=== PATIENT | female | born 1960 | race Caucasian/White ===

== ENCOUNTER 2018-10-17 13:10 | Outpatient (CLI) | payer OTHER ==
[2018-10-17 15:40] LABS: BASOPHILS # (AUTO) 0.1 X10'3 (0-0.2); BASOPHILS % (AUTO) 1.3 % (0-1); EOSINOPHILS # (AUTO) 0.1 X10'3 (0-0.9); EOSINOPHILS % (AUTO) 1.9 % (0-6); LYMPHOCYTES # (AUTO) 1.9 X10'3 (1.1-4.8); LYMPHOCYTES % (AUTO) 41.3 % (21-51); MEAN CORPUSCULAR HGB CONC 33.7 g/dL (33.0-36.5); MEAN PLATELET VOLUME 8.3 FL (7.4-10.4); MONOCYTES # (AUTO) 0.4 X10'3 (0-0.9); MONOCYTES % (AUTO) 7.8 % (2-12); NEUTROPHILS # (AUTO) 2.2 X10'3 (1.8-7.7); NEUTROPHILS % (AUTO) 47.7 % (42-75); PRE OP HEMATOCRIT 41.4 % (35.0-45.0); PRE OP PLATELET COUNT 220 X10'3 (140-440); RED BLOOD COUNT 4.82 X10'6 (4.20-5.60); RED CELL DISTRIBUTION WIDTH 12.7 % (11.5-14.5)
[2018-10-17 15:43] LABS: CLARITY,URINE CLEAR (Clear); COLOR,URINE YELLOW (Yellow); GLUCOSE, URINE NEGATIVE (Neg); KETONES,URINE NEGATIVE (Neg); LEUKOCYTE ESTERASE ,URINE NEGATIVE (Neg); NITRITES, URINE NEGATIVE (Neg); OCCULT BLOOD,URINE NEGATIVE (Neg); PH,URINE 7.5 (4.8-8.0); PROTEIN,URINE NEGATIVE (Neg); UA COLLECTION TYPE CLN CATCH MIDSTREAM; UROBILINOGEN,URINE 0.2 E.U/dL (0.2-1.0)
[2018-10-17 15:48] LABS: PRE OP PROTIME 10.2 SECONDS (9.0-12.0)
[2018-10-17 15:53] LABS: ALBUMIN 3.8 G/DL (3.4-5.0); ALBUMIN/GLOBULIN RATIO 1.1 (1.1-1.5); ALKALINE PHOSPHATASE 113 IU/L (46-116); BLOOD UREA NITROGEN 13 MG/DL (7-18); BUN/CREATININE RATIO 21.7 (6.6-38.0); CALCIUM 9.3 MG/DL (8.5-10.1); CHLORIDE 105 MMOL/L (99-107); PRE OP ALT 23 U/L (30-65); PRE OP ANION GAP 6 (8-16); PRE OP AST 8 U/L (10-37); PRE OP BILIRUB, TOTAL 0.3 MG/DL (0.0-1.0); PRE OP GLUCOSE 85 MG/DL (70-104); PRE OP POTASSIUM 3.7 MMOL/L (3.4-5.1); PRE OP SODIUM 143 MMOL/L (135-145); TOTAL CARBON DIOXIDE 32.5 MMOL/L (24-32); TOTAL PROTEIN 7.3 G/DL (6.4-8.2); eGFR > 90 ML/MIN
[2018-10-17] MEDS ORDERED: POLY17PO10 PO (16:07)
--- NOTE | 2018-10-22 09:53 | NUR ---
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 RN GAVE HER DONATO PHONE NUMBER TO CONTACT DR ARNDT'S TACOS AND UPDATE WITH CURRENT STATUS. Addendum: 10/23/18 at 0617 by Latha Prajapati RN RN ALSO PHONED 10/22 @[address] ARNDT'S TACOS CASH. NO RETURN CALL. SHANNON IN SCHEDULING NOTIFIED OF SITUATION. SHE STATED SHE WOULD CONTACT [facility]LL.
== END 2018-10-17 23:59 | disposition home or self-care (01) ==
LOC: PRE-OP 13:10 → EDSTATUS 10-25 07:30
PROVIDERS: ATTEND Orthopaedic Surgery
DX: Z01.818 Encounter for other preprocedural examination (principal); M16.0 Bilateral primary osteoarthritis of hip; M17.11 Unilateral primary osteoarthritis, right knee; E66.8 Other obesity
CPT/HCPCS: 36415; 80053; 81003; 85025; 85610; 85730; 87070

== ENCOUNTER 2019-01-24 05:28 | Inpatient (IN) | payer OTHER ==
[2019-01-16 15:50] LABS: BASOPHILS # (AUTO) 0.1 X10'3 (0-0.2); BASOPHILS % (AUTO) 1.3 % (0-1); EOSINOPHILS # (AUTO) 0.1 X10'3 (0-0.9); EOSINOPHILS % (AUTO) 1.5 % (0-6); LYMPHOCYTES # (AUTO) 1.7 X10'3 (1.1-4.8); LYMPHOCYTES % (AUTO) 39.3 % (21-51); MEAN CORPUSCULAR HEMOGLOBIN 29.7 PG (27.0-31.0); MEAN CORPUSCULAR HGB CONC 34.5 g/dL (33.0-36.5); MONOCYTES # (AUTO) 0.4 X10'3 (0-0.9); MONOCYTES % (AUTO) 8.2 % (2-12); NEUTROPHILS # (AUTO) 2.2 X10'3 (1.8-7.7); NEUTROPHILS % (AUTO) 49.7 % (42-75); PRE OP HEMATOCRIT 39.8 % (35.0-45.0); PRE OP HEMOGLOBIN 13.7 g/dL (12.0-16.0); PRE OP PLATELET COUNT 227 X10'3 (140-440); RED BLOOD COUNT 4.63 X10'6 (4.20-5.60); RED CELL DISTRIBUTION WIDTH 12.8 % (11.5-14.5)
[2019-01-16 16:06] LABS: PRE OP PROTIME 10.5 SECONDS (9.0-12.0)
[2019-01-16 16:09] LABS: ALBUMIN 3.6 G/DL (3.4-5.0); ALKALINE PHOSPHATASE 117 IU/L (46-116); BLOOD UREA NITROGEN 17 MG/DL (7-18); BUN/CREATININE RATIO 26.2 (6.6-38.0); CALCIUM 8.8 MG/DL (8.5-10.1); CHLORIDE 106 MMOL/L (99-107); CREATININE 0.65 MG/DL (0.40-0.90); PRE OP ALT 27 U/L (30-65); PRE OP ANION GAP 5 (8-16); PRE OP AST 15 U/L (10-37); PRE OP BILIRUB, TOTAL 0.3 MG/DL (0.0-1.0); PRE OP GLUCOSE 81 MG/DL (70-104); PRE OP POTASSIUM 3.8 MMOL/L (3.4-5.1); PRE OP SODIUM 141 MMOL/L (135-145); TOTAL CARBON DIOXIDE 30.3 MMOL/L (24-32); TOTAL PROTEIN 7.3 G/DL (6.4-8.2); eGFR > 90 ML/MIN
[~2019-01-24] VITALS: Ht 157.5 cm; Wt 58.5 kg
[2019-01-24] VITALS (26 sets, daily range): BP systolic 73–101; BP diastolic 23–82
[~2019-01-24 05:28] MED LIST: ACYC-202 PO; POLY17PO10 PO
[2019-01-24] MEDS ORDERED: famotidine 20mg tablet PO ONE (05:30)
[2019-01-24] MEDS ORDERED: ringers solution, lacted 1,000 ML IV SCH ×2 (05:30→07:15)
[2019-01-24] MEDS ORDERED: VANCOMYCIN INJ 1000 MG in NORMAL SALINE 250ml IV.SOLN IV ONE (05:30)
[2019-01-24] MEDS ORDERED: cefazolin/dext.iso 2gm/100 ML IV ONE (05:30)
[2019-01-24] MEDS ORDERED: LIDOcaine 1% (10mg/ml) 2ml vial ONE (06:03)
[2019-01-24] MEDS ORDERED: ketorolac trometh. 30mg/ml inj. ONE (06:37)
[2019-01-24] MEDS ORDERED: ROPIVAcaine 0.5% (5mg/ml) 30ml vial ONE (06:37)
[2019-01-24 06:44] LABS: CLARITY,URINE CLOUDY (Clear); COLOR,URINE YELLOW (Yellow); GLUCOSE, URINE NEGATIVE (Neg); KETONES,URINE NEGATIVE (Neg); LEUKOCYTE ESTERASE ,URINE NEGATIVE (Neg); NITRITES, URINE NEGATIVE (Neg); OCCULT BLOOD,URINE MODERATE (Neg); PH,URINE 5.5 (4.8-8.0); PROTEIN,URINE NEGATIVE (Neg); UROBILINOGEN,URINE 0.2 E.U/dL (0.2-1.0)
--- NOTE | 2019-01-24 06:45 | NUR ---
TEMP 99.4, PT DENIES COLD, FLU OR INFECTIOUS SYMPTOMATOLOGY. DR ARNDT AND DR WOODS NOTIFIED. Addendum: 01/24/19 at 0706 by Jacinta Matute RN Amended: Links added.
[2019-01-24 06:46] LABS: UA COLLECTION TYPE CLN CATCH MIDSTREAM
[2019-01-24 06:56] LABS: BACTERIA,URINE 1+ /HPF (Neg); MUCUS STRANDS FEW /LPF (Neg); RBC,URINE 0-2 /HPF (0-2); SQUAMOUS EPITHELIAL CELL,UR FEW /LPF (FEW); WBC,URINE 0-4 /HPF (0-4)
[2019-01-24] MEDS ORDERED: tetracaine 1% (10mg/ml) pres. free inj. ONE (07:07)
[2019-01-24] MEDS ORDERED: morphine /PF 1mg/ml 10ml inj. ONE (07:10)
[2019-01-24] MEDS ORDERED: MIDAZolam 1mg/ml 10ml vial ONE (07:10)
[2019-01-24] MEDS ORDERED: morphine 4 MG/ML inj SYRINge IV PRN ×2 (07:15)
[2019-01-24] MEDS ORDERED: fentaNYL/PF 50MCG/1 ML 2ML syringe IV PRN ×2 (07:15)
[2019-01-24] MEDS ORDERED: labetalol 20mg/4ml (5mg/ml) syringe IV PRN (07:15)
[2019-01-24] MEDS ORDERED: ondansetron/PF 4mg/2ml inj IV PRN ×3 (07:15→10:25)
[2019-01-24] MEDS ORDERED: hydrALAZINE 20mg/ml inj. IV PRN (07:15)
[2019-01-24] MEDS ORDERED: diphenhydrAMINE 50 mg/ml inj IV PRN (07:20)
[2019-01-24] MEDS ORDERED: LIDOcaine 2% (20mg/ml) 5ml vial ONE (07:32)
[2019-01-24] MEDS ORDERED: propofol inj 20 ML IV ONE (07:32)
[2019-01-24] MEDS ORDERED: ePHEDrine 50MG/ML INJ. ONE (07:36)
[2019-01-24] MEDS ORDERED: ceFAZolin 1000mg inj ONE (09:57)
--- NOTE | 2019-01-24 10:20 | NUR ---
Received from OR via bed, accompanied by Anesthesiologist. Report received. Initial physical assessment done and recorded. Huypotensive on arrival fluid bolus given anesthesia aware.
[2019-01-24] MEDS ORDERED: metoclopramide 5 mg/ml inj IV PRN (10:25)
[2019-01-24] MEDS ORDERED: bisacodyl 10mg suppository rectal RC PRN (10:25)
[2019-01-24] MEDS ORDERED: HYDROcodone/acetaminophen 10/325mg tab PO PRN ×2 (10:25)
[2019-01-24] MEDS ORDERED: diphenhydrAMINE 25mg capsule PO PRN ×2 (10:25)
[2019-01-24] MEDS ORDERED: magnesium hydroxide 30ml (MOM) UD suspension PO PRN (10:25)
--- NOTE | 2019-01-24 12:30 | NUR ---
Dischargge criteria met, report to floor transferred to room 4009 in stable good condition. BP within preop range.
--- NOTE | 2019-01-24 12:45 | NUR ---
ASSUMED CARE, RECEIVED REPORT FROM LINDSAY CURRY. POST OP VITALS STARTED. REPORTS 0/10 PAIN, WILL CONTINUE TO MONITOR.
[2019-01-24] MEDS: gabapentin 300mg capsule PO SCH ×2 (13:00→20:29)
[2019-01-24] MEDS: acetaminophen 325mg tablet PO SCH ×2 (13:35→20:28)
[2019-01-24] MEDS ORDERED: normal saline 1000ml 1,000 ML IV ONE ×3 (15:15→17:25)
[2019-01-24] MEDS: potassium cl 20mEq in 1/2 NS 1,000 ML IV SCH ×2 (15:16→18:57)
--- NOTE | 2019-01-24 15:45 | NUR ---
CALL TO DR ARNDT TO RESUME ACYLOVIR. NO ANSWER AND UNABLE TO LEAVE MESSAGE.
--- NOTE | 2019-01-24 16:15 | NUR ---
CALL OUT TO DR ARNDT RE: LOW BP. ORDERS RECEIVED FOR 500ML BOLUS.
[2019-01-24] MEDS: ceFAZolin 1GM/D5W- ADD-VANTAGE 50 ML IV SCH (16:29)
--- NOTE | 2019-01-24 17:20 | NUR ---
BP AFTER BOLUS 84/52 HR 59 REPORTED TO ROBEL DARNELL RN IN THE OR. WILL INFORM DR ARNDT.
--- NOTE | 2019-01-24 17:24 | NUR ---
ORDERS RECEIVED FOR ANOTHER 500ML BOLUS.
--- NOTE | 2019-01-24 18:05 | NUR ---
Problems reprioritized. Patient report given, questions answered & plan of care reviewed with SAFIA CURRY.
[2019-01-24] MEDS ORDERED: vancomycin/NS 1 GM ADD-VANTAGE 250 ML IV SCH (20:00)
[2019-01-24] MEDS: ascorbic acid 500mg tablet PO SCH (20:28)
[2019-01-24] MEDS: sennosides 8.6mg tablet PO SCH (20:29)
[2019-01-25] MEDS: ceFAZolin 1GM/D5W- ADD-VANTAGE 50 ML IV SCH (00:04)
[2019-01-25 02:03] VITALS: BP 85/50
[2019-01-25] MEDS: acetaminophen 325mg tablet PO SCH ×4 (02:10→20:50)
[2019-01-25] MEDS: potassium cl 20mEq in 1/2 NS 1,000 ML IV SCH ×4 (02:23→22:04)
[2019-01-25 06:00] VITALS: BP 85/45
--- NOTE | 2019-01-25 06:05 | NUR ---
Patient in room ORTHO 4009. I have received report from SAFIA CURRY and had the opportunity to ask questions and assume patient care.
--- NOTE | 2019-01-25 06:18 | NUR ---
Problems reprioritized. Patient report given, questions answered & plan of care reviewed with PATRICIO Davis.
[2019-01-25 06:59] LABS: BASOPHILS % (AUTO) 0.5 % (0-1); EOSINOPHILS # (AUTO) 0.1 X10'3 (0-0.9); EOSINOPHILS % (AUTO) 1.1 % (0-6); HEMATOCRIT 27.1 % (35.0-45.0); HEMOGLOBIN 9.4 g/dl (12.0-16.0); LYMPHOCYTES % (AUTO) 20.5 % (21-51); MEAN CORPUSCULAR HEMOGLOBIN 29.7 PG (27.0-31.0); MEAN CORPUSCULAR HGB CONC 34.7 g/dL (33.0-36.5); MEAN CORPUSCULAR VOLUME 85.6 FL (78-98); MEAN PLATELET VOLUME 8.2 FL (7.4-10.4); MONOCYTES # (AUTO) 0.5 X10'3 (0-0.9); MONOCYTES % (AUTO) 9.7 % (2-12); NEUTROPHILS # (AUTO) 3.4 X10'3 (1.8-7.7); NEUTROPHILS % (AUTO) 68.2 % (42-75); PLATELET COUNT 140 X10'3 (140-440); RED BLOOD COUNT 3.17 X10'6 (4.20-5.60); RED CELL DISTRIBUTION WIDTH 12.7 % (11.5-14.5)
[2019-01-25 07:09] LABS: ANION GAP 5 (8-16); CHLORIDE 112 MMOL/L (99-107); SODIUM 143 MMOL/L (135-145); TOTAL CARBON DIOXIDE 25.6 MMOL/L (24-32)
[2019-01-25] MEDS ORDERED: normal saline 1000ml 1,000 ML IV ONE (07:25)
[2019-01-25] MEDS: gabapentin 300mg capsule PO SCH ×3 (08:21→20:50)
[2019-01-25] MEDS: multivitamins, therapeutics tablet PO SCH (08:22)
[2019-01-25] MEDS: ascorbic acid 500mg tablet PO SCH ×2 (08:22→20:50)
[2019-01-25] MEDS: polyethylene glycol 3350 17gm powd pack PO SCH (08:23)
[2019-01-25] MEDS: enoxaparin 40mg/0.4ml syringe SQ SCH (08:23)
[2019-01-25 10:00] VITALS: BP 102/52
--- NOTE | 2019-01-25 11:00 | NUR ---
HEMOVAC TUBING CAME DISCONNECTED AT RESERVOIR. PULLED HEMOVAC DRAIN, PLACED GAUZE WITH TEGADERM. WILL CONTINUE TO MONITOR.
[2019-01-25 14:00] VITALS: BP 110/52
--- NOTE | 2019-01-25 14:19 | NUR ---
Joint replacement consult: Jesse MURILLO, PO 50-75% avg meals meeting needs given current wt. Addendum: 01/25/19 at [address] Amended: Links added.
[2019-01-25 18:00] VITALS: BP 110/48
--- NOTE | 2019-01-25 18:05 | NUR ---
Problems reprioritized. Patient report given, questions answered & plan of care reviewed with SAFIA CURRY.
[2019-01-25] MEDS: sennosides 8.6mg tablet PO SCH (20:51)
[2019-01-25 22:00] VITALS: BP 123/63
[2019-01-26] MEDS: acetaminophen 325mg tablet PO SCH ×2 (01:39→08:17)
[2019-01-26 06:00] VITALS: BP 112/62
--- NOTE | 2019-01-26 06:03 | NUR ---
Patient in room ORTHO 4009. I have received report from SAFIA CURRY and had the opportunity to ask questions and assume patient care.
--- NOTE | 2019-01-26 06:10 | NUR ---
Problems reprioritized. Patient report given, questions answered & plan of care reviewed with PATRICIO Davis. DCd patient's FC, per protocol.
--- NOTE | 2019-01-26 06:45 | NUR ---
ALERT FROM STAFF THAT PATIENT PASSED OUT IN THE CHAIR SITTING AT THE BATHROOM SINK. STAFF WAS THERE TO ASSIST PATIENT FROM AN INJURY. PATIENT BP 86/42. ABLE TO TRANSFER PATIENT TO RECLINER AND BRING BACK TO BEDSIDE. RECOVERED WELL. BP AFTER SITTING FOR 15 MINUTES 108/62. WILL NOTIFY
[2019-01-26 07:55] LABS: BASOPHILS % (AUTO) 0.5 % (0-1); EOSINOPHILS # (AUTO) 0.1 X10'3 (0-0.9); EOSINOPHILS % (AUTO) 0.9 % (0-6); HEMATOCRIT 28.5 % (35.0-45.0); HEMOGLOBIN 10.1 g/dl (12.0-16.0); LYMPHOCYTES # (AUTO) 1.7 X10'3 (1.1-4.8); LYMPHOCYTES % (AUTO) 24.7 % (21-51); MEAN CORPUSCULAR HEMOGLOBIN 30.4 PG (27.0-31.0); MEAN CORPUSCULAR HGB CONC 35.4 g/dL (33.0-36.5); MEAN PLATELET VOLUME 8.1 FL (7.4-10.4); MONOCYTES # (AUTO) 0.7 X10'3 (0-0.9); MONOCYTES % (AUTO) 10.1 % (2-12); NEUTROPHILS # (AUTO) 4.5 X10'3 (1.8-7.7); NEUTROPHILS % (AUTO) 63.8 % (42-75); PLATELET COUNT 187 X10'3 (140-440); RED BLOOD COUNT 3.32 X10'6 (4.20-5.60)
[2019-01-26] MEDS: ascorbic acid 500mg tablet PO SCH ×2 (08:17→20:09)
[2019-01-26] MEDS: gabapentin 300mg capsule PO SCH ×3 (08:17→20:09)
[2019-01-26] MEDS: multivitamins, therapeutics tablet PO SCH (08:17)
[2019-01-26] MEDS: polyethylene glycol 3350 17gm powd pack PO SCH (08:17)
[2019-01-26] MEDS: enoxaparin 40mg/0.4ml syringe SQ SCH (08:18)
[2019-01-26 10:00] VITALS: BP 103/56
--- NOTE | 2019-01-26 14:30 | NUR ---
PATIENT UP TO THE BATHROOM AND AMBULATING WITH FWW MULTIPLE TIMES THIS AFTERNOON WITHOUT ANY DIFFICULTIES. NO REPORTS OF DIZZINESS.
[2019-01-26] MEDS: acetaminophen 325mg tablet PO PRN (17:16)
[2019-01-26 18:00] VITALS: BP 117/51
--- NOTE | 2019-01-26 18:03 | NUR ---
Problems reprioritized. Patient report given, questions answered & plan of care reviewed with SAFIA CURRY.
[2019-01-26] MEDS: sennosides 8.6mg tablet PO SCH (20:09)
[2019-01-26 22:00] VITALS: BP 109/58
[2019-01-27] MEDS: acetaminophen 325mg tablet PO PRN (04:59)
--- NOTE | 2019-01-27 06:00 | NUR ---
Patient in room ORTHO 4009. I have received report from and had the opportunity to ask questions and assume patient care Tegan. RN.
--- NOTE | 2019-01-27 06:37 | NUR ---
Problems reprioritized. Patient report given, questions answered & plan of care reviewed with PATRICIO Hermosillo.
[2019-01-27 06:46] LABS: BASOPHILS % (AUTO) 0.7 % (0-1); EOSINOPHILS # (AUTO) 0.1 X10'3 (0-0.9); EOSINOPHILS % (AUTO) 0.9 % (0-6); HEMATOCRIT 25.1 % (35.0-45.0); HEMOGLOBIN 8.9 g/dl (12.0-16.0); LYMPHOCYTES # (AUTO) 1.5 X10'3 (1.1-4.8); LYMPHOCYTES % (AUTO) 26.3 % (21-51); MEAN CORPUSCULAR HEMOGLOBIN 29.8 PG (27.0-31.0); MEAN CORPUSCULAR HGB CONC 35.3 g/dL (33.0-36.5); MEAN CORPUSCULAR VOLUME 84.3 FL (78-98); MEAN PLATELET VOLUME 7.7 FL (7.4-10.4); MONOCYTES # (AUTO) 0.6 X10'3 (0-0.9); MONOCYTES % (AUTO) 9.7 % (2-12); NEUTROPHILS # (AUTO) 3.6 X10'3 (1.8-7.7); NEUTROPHILS % (AUTO) 62.4 % (42-75); PLATELET COUNT 162 X10'3 (140-440); RED BLOOD COUNT 2.98 X10'6 (4.20-5.60); RED CELL DISTRIBUTION WIDTH 13.2 % (11.5-14.5); WHITE BLOOD COUNT 5.7 X10'3 (4.5-11.0)
[2019-01-27] MEDS: multivitamins, therapeutics tablet PO SCH (07:45)
[2019-01-27] MEDS: gabapentin 300mg capsule PO SCH ×2 (07:45→13:00)
[2019-01-27] MEDS: polyethylene glycol 3350 17gm powd pack PO SCH (07:45)
[2019-01-27] MEDS: ascorbic acid 500mg tablet PO SCH (07:45)
[2019-01-27] MEDS: enoxaparin 40mg/0.4ml syringe SQ SCH (07:46)
--- NOTE | 2019-01-27 13:45 | NUR ---
DISCHARGE: Dr Estrada called back, stated pt ok to DC. VSS, denies pain, SOB, resp distress, N/V, vertigo at DC. pt using walker, has walker at home. Drsg changed to surg site, CDI, gauze, island dressing applied to site, gauze, tegaderm applied to smaller areas/surg site. Pt escorted KRISTY in WC by [facility] staff. Pt transferred safely into personal vehicle. Friend taking pt back home to [place]. pt signed necessary documents for DC, copied given to pt. Pt will make own follow up appt. PT supplied pt with instructions for proper ambulation, sitting, exercising for rehab at home. Pt verbalized understanding of proper way to stay injury free.
== END 2019-01-27 14:11 | disposition home or self-care (01) | DRG 470 ==
LOC: PAS IN 05:28 → EDSTATUS 07:30 → ORTHO 4S 12:49
PROVIDERS: ADMIT Orthopaedic Surgery; ATTEND Orthopaedic Surgery
PROC: BQ101ZZ Fluoroscopy of Right Hip using Low Osmolar Contrast (ICD-10-PCS; 2019-01-24)
PROC: 0SR902Z Replacement of Right Hip Joint with Metal on Polyethylene Synthetic Substitute, Open Approach (ICD-10-PCS; principal; 2019-01-24 07:17)
DX: M16.0 Bilateral primary osteoarthritis of hip (principal); D62 Acute posthemorrhagic anemia; F43.10 Post-traumatic stress disorder, unspecified; F41.9 Anxiety disorder, unspecified; F32.9 Major depressive disorder, single episode, unspecified; M17.11 Unilateral primary osteoarthritis, right knee; E66.8 Other obesity; K59.09 Other constipation; Z68.23 Body mass index [BMI] 23.0-23.9, adult; Z82.3 Family history of stroke; Z79.899 Other long term (current) drug therapy
CPT/HCPCS: Z7506; Z7508; 36415; 73502; 76000; 80051; 80053; 81001; 82948; 85025; 85610; 85730; 86885; 86900; 86901; 87081; 97110; 97116; 97161; 97530; A6250; A6258; A6446; A6449; A6455; A7000; C1758; C1776; G0378; J0690; J1644; J1650; J1885; J2001; J2250; J2270; J2405; J2704; J2765; J2795; J3370; J3480; J7030; J7120